=== PATIENT | female | born 1975 | race Two or more races ===

== ENCOUNTER 2019-11-03 15:31 | Emergency (ER) | payer SELFPAY ==
[~2019-11-03] VITALS: Ht 162.6 cm; Wt 94.8 kg
[2019-11-03] MEDS ORDERED: SODIUM FERR GLUC 62.5MG/5ML 125 MG in SODIUM CHL 0.9% 100 ML IV ONE (16:15)
[2019-11-03 16:33] LABS: Albumin 3.6 g/dL (3.4-5.0); Calcium 8.3 mg/dL (8.5-10.1); Potassium 3.6 mmol/L (3.5-5.1)
[2019-11-03 16:36] LABS: Bilirubin, Total 0.3 mg/dL (0.2-1.0)
[2019-11-03 16:41] LABS: Eosinophils # (auto) 0.1 uL; Monocytes # (auto) 0.6 uL
[2019-11-03 16:43] LABS: Basophils # (auto) 0 uL; Basophils % (auto) 0.7 % (0.0-2.0); Eosinophils % (auto) 1.5 % (0.0-7.0); Hematocrit 18.8 % (36.0-46.0); Lymphocytes # (auto) 1.8 uL; Lymphocytes % (auto) 24.9 % (10.0-50.0); Mean Corpuscular Hemoglobin 15.8 pg (28.0-32.0); Mean Corpuscular Hgb Conc. 29.1 g/dL (32.0-36.0); Mean Corpuscular Volume 54.2 fL (80.0-100.0); Monocytes % (auto) 7.9 % (0.0-12.0); Neutrophils # (auto) 4.7 uL; Nucleated Red Blood Cells % 0.3 %; Platelet Count (auto) 330 10^3/uL (140-450); Red Blood Cells 3.47 10^6/uL (4.0-5.20); Red Cell Distribution Width 19.2 % (11.8-14.3); White Blood Cell 7.2 10^3/uL (4.4-10.8)
[2019-11-03 16:55] LABS: Hemoglobin 5.5 g/dL (12.2-16.2)
[2019-11-03 17:28] VITALS: BP 131/71
== END 2019-11-03 18:11 | disposition home or self-care (01) ==
LOC: ER 15:31
DX: D64.9 Anemia, unspecified (principal); N92.0 Excessive and frequent menstruation with regular cycle; D21.9 Benign neoplasm of connective and other soft tissue, unspecified
CPT/HCPCS: 36415; 80053; 85025; 93005; 96365; 99284; J2916

== ENCOUNTER 2020-04-12 10:05 | Emergency (ER) | payer MEDICAID ==
[~2020-04-12] VITALS: Ht 162.6 cm; Wt 104.3 kg
[2020-04-12] MEDS ORDERED: SODIUM CHLORIDE 0.9% 500 ML IV ONE (10:14)
[2020-04-12] MEDS ORDERED: medroxyPROGESTERone ACETATE 5 MG TAB PO ONE (10:30)
[2020-04-12 11:13] LABS: Eosinophils # (auto) 0.2 10 ^3/uL (0-0.8); Monocytes # (auto) 0.7 10 ^3/uL (0-1.3); Nucleated Red Blood Cells % 0.2 %
[2020-04-12 11:15] LABS: Basophils # (auto) 0.2 10 ^3/uL (0-0.2); Basophils % (auto) 1.8 % (0.0-2.0); Eosinophils % (auto) 2.5 % (0.0-7.0); Hematocrit 17.2 % (36.0-46.0); Lymphocytes # (auto) 1.8 10 ^3/uL (0.4-5.4); Lymphocytes % (auto) 19.8 % (10.0-50.0); Mean Corpuscular Hemoglobin 16.7 pg (28.0-32.0); Mean Corpuscular Hgb Conc. 29.9 g/dL (32.0-36.0); Mean Corpuscular Volume 55.9 fL (80.0-100.0); Monocytes % (auto) 7.6 % (0.0-12.0); Neutrophils # (auto) 6.4 10 ^3/uL (1.6-8.6); Neutrophils % (auto) 68.3 % (37.0-80.0); Platelet Count (auto) 303 10^3/uL (140-450); Red Blood Cells 3.08 10^6/uL (4.0-5.20); White Blood Cell 9.4 10^3/uL (4.4-10.8)
[2020-04-12 11:24] LABS: Red Cell Distribution Width 20.5 % (11.8-14.3)
[2020-04-12 11:27] LABS: Hemoglobin 5.2 g/dL (12.2-16.2)
[2020-04-12 11:33] LABS: INR 0.96 (0.9-1.15); Partial Thromboplastin Time 24.1 sec (23.64-32.05)
[2020-04-12 16:28] VITALS: BP 105/53
== END 2020-04-12 16:38 | disposition short-term general hospital (02) ==
LOC: ER 10:05
DX: N93.9 Abnormal uterine and vaginal bleeding, unspecified (principal); D64.9 Anemia, unspecified
CPT/HCPCS: 36415; 76830; 76856; 84702; 85025; 85610; 85730; 99285; J7040

== ENCOUNTER 2021-10-16 10:34 | Emergency (ER) | payer MEDICAID, OTHER ==
[~2021-10-16] VITALS: Ht 162.6 cm; Wt 104.3 kg
[2021-10-16 12:24] VITALS: BP 158/84
[2021-10-16] MEDS ORDERED: IBUPROFEN 800 MG TAB PO ONE (13:00)
== END 2021-10-16 13:38 | disposition home or self-care (01) ==
LOC: ER 10:34 → EDBD 10:34 → ER 13:38
DX: S16.1XXA Strain of muscle, fascia and tendon at neck level, initial encounter (principal); S60.221A Contusion of right hand, initial encounter; V43.62XA Car passenger injured in collision with other type car in traffic accident, initial encounter; Y93.89 Activity, other specified; Y92.89 Other specified places as the place of occurrence of the external cause; Y99.8 Other external cause status
CPT/HCPCS: 72040; 73130; 93005

== ENCOUNTER 2022-11-18 09:48 | Emergency (ER) | payer MEDICAID, OTHER ==
[~2022-11-18] VITALS: Ht 162.6 cm; Wt 101.0 kg
[2022-11-18 10:52] LABS: Albumin 3.8 g/dL (3.4-5.0); Calcium 8.6 mg/dL (8.5-10.1); Potassium 4.2 mmol/L (3.5-5.1)
[2022-11-18 10:55] LABS: Basophils # (auto) 0.1 10 ^3/uL (0-0.2); Eosinophils # (auto) 0.2 10 ^3/uL (0-0.8); Hemoglobin 7.5 g/dL (12.2-16.2); Lymphocytes # (auto) 2.2 10 ^3/uL (0.4-5.4); Monocytes # (auto) 0.5 10 ^3/uL (0-1.3)
[2022-11-18 10:56] LABS: BUN/Creatinine Ratio 14.7; Bilirubin, Total 0.3 mg/dL (0.2-1.0); Total Protein 6.8 g/dL (6.4-8.2)
[2022-11-18 11:05] LABS: Basophils % (auto) 0.7 % (0.0-2.0); Eosinophils % (auto) 2.3 % (0.0-7.0); Hematocrit 24.6 % (36.0-46.0); Lymphocytes % (auto) 28.5 % (10.0-50.0); Mean Corpuscular Hemoglobin 18.7 pg (28.0-32.0); Mean Corpuscular Hgb Conc. 30.4 g/dL (32.0-36.0); Mean Corpuscular Volume 61.5 fL (80.0-100.0); Neutrophils # (auto) 4.9 10 ^3/uL (1.6-8.6); Neutrophils % (auto) 62.5 % (37.0-80.0); Nucleated Red Blood Cells % 0.1 %; Red Cell Distribution Width 17.3 % (11.8-14.3); White Blood Cell 7.8 10^3/uL (4.4-10.8)
[2022-11-18 11:42] LABS: Urine Bacteria NONE SEEN /hpf (None Seen); Urine Blood 3+ /uL (Negative); Urine Specific Gravity 1.004 (1.001-1.035); Urine WBC 3 /hpf (0 - 5)
[2022-11-18] MEDS ORDERED: medroxyPROGESTERone ACETATE 5 MG TAB PO ONE (15:30)
[2022-11-18] MEDS ORDERED: FERROUS SULFATE 325mg EC TAB PO ONE (15:30)
[2022-11-18] MEDS ORDERED: FER325T PO (15:31)
[2022-11-18 16:16] VITALS: BP 134/74
== END 2022-11-18 16:17 | disposition home or self-care (01) ==
LOC: ER 09:48
DX: N92.0 Excessive and frequent menstruation with regular cycle (principal); D64.9 Anemia, unspecified; R10.2 Pelvic and perineal pain
CPT/HCPCS: 36415; 76856; 80053; 81001; 84702; 85025